=== PATIENT | male | born 1970 | race Caucasian/White ===

== ENCOUNTER 2016-12-10 15:08 | Emergency (ER) | payer OTHER ==
[2016-12-10 16:16] LABS: HEMOGLOBIN 15.2 gm/dl (14.0-17.5); RED BLOOD COUNT 5.41 M/UL (4.20-5.50); WHITE BLOOD COUNT 6.1 K/UL (4.5-11.0)
[2016-12-10 16:35] LABS: BUN/CREATININE RATIO 16 (0-10)
== END 2016-12-10 17:35 | disposition home or self-care (01) ==
LOC: EDBD 15:08 → ER1 15:08
PROVIDERS: Emergency Medicine
DX: L03.116 Cellulitis of left lower limb (principal)
CPT/HCPCS: 36415; 80048; 85025; 93971; 99284